=== PATIENT | female | born 1945 | race Caucasian/White ===

== ENCOUNTER → 2020-11-09 | Outpatient (CLI) | payer MEDICARE ==
[~2020-11-09] MED LIST: DOBUTamine DRIP for NUC MED 500 MG in DEXTROSE/WATER 1 250ML.BAG IV PRN
--- NOTE | 2020-11-09 11:51 | US ---
EXAMINATION TYPE: US carotid duplex BILAT DATE OF EXAM: 11/09/2020 COMPARISON: NONE CLINICAL HISTORY: R09.89 CAROTID BRUIT. HTN controlled with meds. No hx TIA. EXAM MEASUREMENTS: RIGHT: Peak Systolic Velocity (PSV) cm/sec ----- Right CCA: 80.9 ----- Right ICA: 90.0 ----- Right ECA: 43.8 ICA/CCA ratio: 1.1 RIGHT: End Diastole cm/sec ----- Right CCA: 25.9 ----- Right ICA: 30.7 ----- Right ECA: 0.0 LEFT: Peak Systolic Velocity (PSV) cm/sec ----- Left CCA: 80.9 ----- Left ICA: 127.6 ----- Left ECA: 81.4 ICA/CCA ratio: 1.6 LEFT: End Diastole cm/sec ----- Left CCA: 30.3 ----- Left ICA: 44.8 ----- Left ECA: 0.0 VERTEBRALS (direction of flow): Right Vertebral: Antegrade Left Vertebral: Antegrade Rhythm: Arrhythmia Plaque in bilateral CCA. No significant stenosis. No elevated velocities. Wall thickening seen. A scale, color Doppler, spectral Doppler imaging performed of the carotid arteries. Waveform analysis does not show significant stenosis of the internal carotid arteries. IMPRESSION: No hemodynamic significant stenosis of the proximal internal carotid arteries by Doppler criteria, an indirect measurement of carotid stenosis, cardiac arrhythmia noted incidentally Criteria for Assigning % of Stenosis / Diameter reduction (Estimation based on the indirect measurements of the internal carotid artery velocities (ICA PSV). 1. Normal (no stenosis)=ICA PSV < 125 cm/s: ratio < 2.0: ICA EDV<40 cm/s. 2. Less than 50% stenosis=ICA PSV < 125 cm/s: ratio < 2.0: ICA EDV<40 cm/s. 3. 50 to 69% stenosis=ICA PSV of 125 to 230 cm/s: ration 2.0 ? 4.0: ICA EDV 40-100 cm/s. 4. Greater than 70% stenosis to near occlusion= ICA PSV > 230 cm/s: ratio > 4.0: ICA EDV > 100 cm/s. 5. Near occlusion= ICA PSV velocities may be low or undetectable: variable ratio and ICA EDV. 6. Total occlusion=unable to detect flow.
--- NOTE | 2020-11-09 14:20 | ECHOS ---
STRESS ECHOCARDIOGRAM DATE OF SERVICE: 11/09/20 INDICATIONS: Abnormal EKG BASELINE HEART RATE: 65 BASELINE BLOOD PRESSURE: 137/82 MAXIMUM HEART RATE: 138 MAXIMUM BLOOD PRESSURE: 141/74 85% MPHR: 125 100% MPHR: 147 METS: MAXIMUM STAGE REACHED: III TOTAL EXERCISE TIME: 9:11 RESULTS: Baseline rhythm is sinus mechanism, rate of 65, normal axis and intervals. Normal echocardiogram. Baseline blood pressure 137/87 mmHg. Patient received infusion of dobutamine per protocol. Electrocardiograph monitoring revealed occasional PVCs. There was one run of 5 complex ventricular tachycardia. Peak rate 138 beats per minute which is equal to 94% maximum predicted heart rate. Peak blood pressure 141/74 mmHg. Electrocardiograph monitoring revealed no evidence of diagnostic ischemic ST deviation. FINDINGS: Baseline echocardiogram revealed normal wall motion. At peak infusion, there was normal wall motion augmentation with no hypokinesis or dyskinesis. CONCLUSION: 1. Normal electrocardiographic response to dobutamine infusion with 1 run of 5 complexes ventricular tachycardia. 2. Normal stress echocardiogram with no evidence of stress-induced ischemia. MMODL / IJN: [id number] /
== END | disposition home or self-care (01) ==
LOC: RADNMMAIN 09:58
PROVIDERS: ATTEND Family Medicine
DX: I65.23 Occlusion and stenosis of bilateral carotid arteries (principal); I10 Essential (primary) hypertension
CPT/HCPCS: 93880; C8930; Q9950; 93351